=== PATIENT | female | born 1935 | race Caucasian/White ===

== ENCOUNTER 2018-07-20 18:24 | Observation (INO) | payer MEDICARE, OTHER ==
[~2018-07-20] VITALS: Ht 162.6 cm; Wt 70.0 kg
[~2018-07-20 18:24] MED LIST: ACET-141 PO; ADV25050 IH; ALBU18HF INHALATION; AMLO-218 PO; ASPI81TA52 PO; ATAS PO; CLON-379 PO; DICL100G37 TOP; DOCU-159 PO; DULO60CA6 PO; ERGO500014 PO; ESOM20CA PO; FURO20TA3 PO; HYDR-3670 PO; IBAN150T7 PO; IBUP-1542 PO; ISOS30TA67 PO; LEVO500T48 PO; LINA290C PO; LIPA1CAP6 PO; LORA1TAB PO; MECL-77 PO; MEMA28CA PO; MONT10TA21 PO; NAPR-685 PO; NITR0.4T32 SL; OLOP2.5D BOTH EYES; RESTOP4 BOTH EYES; SIMV20TA PO
[2018-07-20] MEDS ORDERED: ONDANSETRON 4 MG INJ IV STA (18:38)
[2018-07-20] MEDS ORDERED: morphine 2 MG INJ IV STA (18:38)
--- NOTE | 2018-07-20 19:34 | ERD ---
ER Documentation Chief Complaint Chief Complaint Intermittent CP at adult daycare, went home, worsened & had headache. VSS HPI 82-year-old female who presents to the emergency room with a granddaughter who is interpreting for the patient describes about 2 days of on and off waxing and waning chest pain that is pressure-like and central and nonradiating. It is present currently but limited by aspirin and nitroglycerin given via EMS. No fevers or chills or cough or congestion. No pleuritic pain. Negative stress test reported approximately 2 years ago. Symptoms are mild currently. ROS All systems reviewed and are negative except as per history of present illness. Medications Home Meds Active Scripts Naproxen* (Naproxen*) 375 Mg Tablet, 375 MG PO BID PRN for PAIN, #20 TAB Prov:HEATHER EMERY DO 07/18/15 Levofloxacin* (Levaquin*) 500 Mg Tablet, 500 MG PO DAILY for 7 Days, TAB Prov:HEATHER EMERY DO 07/18/15 Reported Medications Acetaminophen* (Acetaminophen*) 500 MG Extra Strength Tablet, 1000 MG PO Q6H PRN for PAIN AND OR ELEVATED TEMP, TAB 07/18/15 Diclofenac Sodium* (Voltaren* Gel) 1% -100 Gm Gel, 2 GM TOP TID, #1 TUB 07/18/15 Ergocalciferol* (Drisdol* (Vitamin D2)) 50,000 Unit Capsule, 30105 UNIT PO Q7D, CAP 07/18/15 Olopatadine* (Pataday*) 0.2% - 2.5 Ml Drops, 1 DROP BOTH EYES DAILY, EA 07/18/15 Isosorbide Mononitrate* (Isosorbide Mononitrate*) 30 Mg Tab.er.24h, 30 MG PO DAILY, TAB 07/18/15 Uvvaus-Javofbxt-Fzkcpca* (García INGRAM* 24,000) 24,000 L-76,000-120,000 Unit Capsule.dr, 1 CAP PO WITH MEALS, CAP 07/18/15 Docusate Sodium* (Docusate Sodium*) 100 Mg Capsule, 100 MG PO DAILY, #30 CAP 07/18/15 Clonidine Hcl* (Clonidine Hcl*) 0.1 Mg Tab, 0.1 MG PO Q8 PRN for ELEVATED BLOOD PRESSURE, TAB 07/18/15 Ibandronate Sodium* (Boniva*) 150 Mg Tablet, 150 MG PO Q28D, TAB 07/18/15 Amlodipine Besylate* (Norvasc*) 10 Mg Tablet, 10 MG PO DAILY, TAB 07/18/15 Meclizine Hcl* (Meclizine Hcl*) 25 Mg Tablet, 25 MG PO Q8H PRN for DIZZINESS, TAB 07/18/15 Memantine* (Namenda* XR) 28 Mg Cap.spr.24, 28 MG PO DAILY, #30 TAB 07/18/15 Linaclotide (LINZESS) 290 Mcg Capsule, 290 MCG PO DAILY, #30 CAP 07/18/15 Ibuprofen* (Motrin*) 600 Mg Tab, 600 MG PO BID PRN for PAIN, TAB 07/18/15 Cyclosporine* (Restasis* Oph) 32 Ea Droperette, 1 DROP BOTH EYES Q12, #1 BOX 07/18/15 Aspirin (Low Dose Aspirin) 81 Mg Tablet.dr, 81 MG PO DAILY, #30 TAB 07/18/15 Albuterol Sulfate* (Ventolin HFA*) 18 Gm Hfa.aer.ad, 2 PUFF INHALATION Q6H, #1 INHALER 07/18/15 Esomeprazole Mag Trihydrate (Nexium) 20 Mg Capsule.dr, 20 MG PO DAILY, #30 CAP 07/18/15 Hydralazine Hcl* (Hydralazine Hcl*) 10 Mg Tablet, 10 MG PO Q8, #90 TAB 07/18/15 Hydroxyzine Hcl* (Atarax*) 2 Mg/Ml Syrup, 10 MG PO Q8 PRN for ITCHING, ML 07/18/15 Simvastatin* (Zocor*) 20 Mg Tablet, 20 MG PO QHS, #30 TAB 07/18/15 Duloxetine Hcl* (Cymbalta*) 60 Mg Capsule.dr, 60 MG PO DAILY, CAP 07/18/15 Lorazepam* (Lorazepam*) 1 Mg Tablet, 1 MG PO HS PRN for SLEEP, #30 TAB 07/18/15 Furosemide* (Furosemide*) 20 Mg Tablet, 20 MG PO DAILY, #60 TAB 07/18/15 Salmeterol Xinaf/Fluticasone* (Advair 250/50 Diskus*) 1 Inh Inha, 2 IH 09/29/11 Montelukast Sodium* (Singulair*) 10 Mg Tablet, 10 MG PO DAILY 09/29/11 Nitroglycerin* (Nitroglycerin* SL) 0.4 Mg Tab.subl, 0.4 MG SL 09/29/11 Allergies Allergies: Coded Allergies: No Known Allergy (Verified , 07/11/06) PMhx/Soc History of Surgery: Yes (APPENDECTOMY 20 YEARS AGO) Anesthesia Reaction: No Hx Neurological Disorder: No Hx Respiratory Disorders: Yes (HX CHF) Hx Cardiac Disorders: Yes (HX HTN AND CAD) Hx Psychiatric Problems: Yes (HX DEPRESSION) Hx Miscellaneous Medical Probl: No Hx Alcohol Use: No Hx Substance Use: No Hx Tobacco Use: No Smoking Status: Never smoker FmHx Family History: No diabetes Physical Exam Vitals Vital Signs Date Temp Pulse Resp B/P (MAP) Pulse Ox O2 O2 Flow FiO2 Time Delivery Rate 07/20/18 99.2 80 16 133/74 99 Room Air 18:41 (93) 07/20/18 90 16 133/74 99 18:29 (93) Physical Exam General: Well developed, well nourished, no acute distress Head: Normocephalic, atraumatic. Eyes: Pupils equally reactive, EOM intact ENT: Moist mucous membranes Neck: Supple, no lymphadenopathy Respiratory: Lungs clear bilaterally, no distress Cardiovascular: RRR, no murmurs, rubs, or gallops Abdominal: Soft, non-tender, non-distended, no peritoneal signs : Deferred MSK: No edema, no unilateral swelling, 5/5 strength Neurologic: Alert and oriented, moving all extremities, normal speech, no focal weakness, no cerebellar signs Skin: No rash Psych: Normal mood Result Diagram: 07/20/18 1845 07/20/18 1845 Results 24 hrs Laboratory Tests Test 07/20/18 18:45 White Blood Count 7.3 10^3/ul Red Blood Count 4.05 10^6/ul Hemoglobin 11.6 g/dl Hematocrit 36.0 % Mean Corpuscular Volume 88.9 fl Mean Corpuscular Hemoglobin 28.6 pg Mean Corpuscular Hemoglobin Concent 32.2 g/dl Red Cell Distribution Width 13.3 % Platelet Count 242 10^3/UL Mean Platelet Volume 8.7 fl Immature Granulocytes % 0.100 % Neutrophils % 63.0 % Lymphocytes % 30.8 % Monocytes % 5.7 % Eosinophils % 0.0 % Basophils % 0.4 % Nucleated Red Blood Cells % 0.0 /100WBC Immature Granulocytes # 0.010 10^3/ul Neutrophils # 4.6 10^3/ul Lymphocytes # 2.2 10^3/ul Monocytes # 0.4 10^3/ul Eosinophils # 0.0 10^3/ul Basophils # 0.0 10^3/ul Nucleated Red Blood Cells # 0.0 10^3/ul Sodium Level 133 mmol/L Potassium Level 4.9 mmol/L Chloride Level 102 mmol/L Carbon Dioxide Level 25 mmol/L Anion Gap 6 Blood Urea Nitrogen 17 mg/dl Creatinine 0.93 mg/dl Est Glomerular Filtrat Rate mL/min mL/min Glucose Level 98 mg/dl Calcium Level 8.2 mg/dl Troponin I < 0.012 ng/ml Current Medications Medications Dose Sig/Marlin Start Time Status Last (Trade) Ordered Route PRN Stop Time Admin Dose Reason Admin Morphine 2 mg ONCE STAT 07/20/18 DC Sulfate IV 18:38 (morphine) 07/20/18 18:39 Ondansetron 4 mg ONCE STAT 07/20/18 DC HCl (Zofran IV 18:38 Inj) 07/20/18 18:39 Procedures/MDM EKG, MONITORS, & DIAGNOSTIC IMAGING: EKG: I reviewed and interpreted a 12-lead EKG. Rhythm: Normal sinus rhythm ST Changes: No contiguous ST segment elevations T waves: No contiguous T wave inversions Impression: No evidence of acute cardiac ischemia Repeat EKG: EKG: I reviewed and interpreted a 12-lead EKG. Rhythm: Normal sinus rhythm ST Changes: No contiguous ST segment elevations T waves: No contiguous T wave inversions Impression: No evidence of acute cardiac ischemia Chest x-ray: I reviewed and interpreted a 1 view of the chest Mediastinum: No enlargement Cardiac silhouette: No cardiomegaly Airspace: Clear lung live bilaterally without evidence of pneumothorax Bones: No evidence of fracture PROCEDURES: None LAB INTERPRETATION: * Negative troponin MEDICAL DECISION MAKING: The patient's history, physical exam and clinical presentation is concerning for possible cardiogenic etiology and acute coronary syndrome. Based on the patient's clinical exam and history and risk factors, I have a much lower clinical concern for pulmonary embolism, acute aortic dissection, pneumothorax, pneumonia, cardiac tamponade HEART Score: 4 MACE Rate: 16.6% Shared Decision Making: We had a conversation regarding risk stratification, MACE rate, and the risks, benefits, alternatives of disposition planning options. Disposition planning: Admission for rule out ER COURSE: * Chest pain improving * Aspirin given prior to arrival CONSULTATION: Community Representative Dr. Barrera notified DISPOSITION PLAN: Accepting care team and consultations: I discussed the current laboratory data, diagnostic imaging and emergency care provided. Admitting team: Dr. Arceo Admitting team indication: Insurance directed Departure Diagnosis: Primary Impression: Chest pain Chest pain type: unspecified Qualified Codes: R07.9 - Chest pain, unspecified Condition: Stable IDALIA YARBROUGH MD Jul 20, 2018 19:34
[2018-07-20] MEDS ORDERED: ONDANSETRON 4 MG INJ IV PRN (20:00)
[2018-07-20] MEDS ORDERED: ATORVASTATIN 10 MG TAB PO SCH (21:00)
[2018-07-20] MEDS ORDERED: LORAZEPAM 1 MG TAB PO PRN (21:30)
[2018-07-20] MEDS ORDERED: ZOLPIDEM 5 MG TAB PO PRN (22:00)
--- NOTE | 2018-07-20 22:15 | CONS ---
DATE OF ADMISSION: 07/20/2018 DATE OF CONSULTATION: 07/20/2018 REASON FOR CONSULTATION: Chest pain, assess for acute coronary syndrome. REQUESTING PHYSICIAN: Thai Mcleod MD from the emergency department. HISTORY OF PRESENT ILLNESS: Ms. Garcia is an 82-year-old female with a history of hypertension, d yslipidemia, coronary artery disease, congestive heart failure, depression, appendectomy, who present s from our adult daycare with complaints of substernal chest pain, describes a pressure-like sensatio n associated with headache, left arm numbness. The patient additionally had similar symptoms a few d ays prior and had been evaluated by her PMD. Upon arrival in the emergency department, temperature o f 99.2, blood pressure 133/74, pulse , respiratory rate 16, sat 99%. The patient's labs notable for white blood cell count of 7.3, hemoglobin 11.6, platelet count of 242. Sodium 133, potassium 4. 9, creatinine of 0.9, BUN 17. Troponin negative. Glucose of 98, calcium 8.2. The patient underwent a chest x-ray revealing stable mild cardiomegaly, aortic calcified atherosclerosis, no evidence for acute cardiopulmonary abnormalities. The patient's electrocardiogram revealed a normal sinus rhythm, rate 75 with borderline left axis deviation, anterior T-wave inversion, poor R-wave progression acro ss the anterior precordial leads. The patient thus far has been treated with Zofran, Tylenol, morphi ne and awaits admit to the floor. The patient has had improvement in chest pain status post morphine . PAST MEDICAL HISTORY: As above in HPI. MEDICATIONS PRIOR TO ADMIT: 1. Levofloxacin. 2. Norvasc 10 mg daily. 3. Clonidine p.r.n. 4. Hydralazine 10 mg p.o. q. 8. 5. Imdur 30 mg daily. 6. Simvastatin 20 mg at bedtime. 7. Aspirin 81 mg daily. 8. Cymbalta 60 mg daily. 9. Ibuprofen p.r.n. 10. Namenda 20 mg daily. 11. Naproxen p.r.n. 12. Lasix 20 mg daily. 13. Singulair. 14. Advair. 15. Cyclosporine eyedrops. ALLERGIES: NO DRUG ALLERGIES. SOCIAL HISTORY: No current tobacco, ETOH or illicit drug use. FAMILY HISTORY: No history of sudden cardiac or early CAD. REVIEW OF SYSTEMS: As above in HPI. CONSTITUTIONAL: No fevers, chills. PULMONARY: No current shortness of breath. CARDIOVASCULAR: Intermittent chest pain. GASTROINTESTINAL: No vomiting. GENITOURINARY: No hematuria. MUSCULOSKELETAL: Degenerative joint disease. PSYCHIATRIC: No documented psych history. NEUROLOGIC: History of dementia. PHYSICAL EXAMINATION: VITAL SIGNS: Temperature 99.2, blood pressure 133/74, pulse , respiratory rate 16, sat 99%. GENERAL: The patient is alert, awake, complaining of intermittent chest pain. NECK: JVP approximately 8 to 9 cm of water. CHEST: Fair air movement throughout. HEART: Regular rate and rhythm. Normal S1, S2, I/ systolic murmur, nondisplaced PMI. ABDOMEN: Positive bowel sounds, soft. EXTREMITIES: No significant pitting edema, 1+ pulses bilateral posterior tibial. LABORATORY DATA: As above in HPI. No further labs for my review at this time. IMAGING STUDIES: As above in HPI. No further imaging studies for my review at this time. ECG: As above in HPI. No further electrocardiograms for my review at this time. IMPRESSION: 1. Chest pain, assess for acute coronary syndrome. 2. Abnormal electrocardiogram with anterior T-wave inversions and poor R-wave progression across ant erior precordial leads. Assess for acute coronary syndrome. 3. Hypertension, under reasonable control. 4. Dyslipidemia. 5. History of coronary artery disease. 6. History of congestive heart failure with findings of reasonable volume status at this time. 7. Headache, rule out cerebrovascular accident. 8. Right arm weakness, rule out cerebrovascular accident. 9. Dementia. 10. Anemia, mild. 11. Mild hyponatremia. RECOMMENDATIONS: 1. At this time, we would admit patient to telemetry monitoring to follow rhythm and rate control cl osely. 2. We will complete a rule out for myocardial infarction to ensure the patient's chest pain is not d ue to acute coronary syndrome such as acute myocardial infarction. 3. We would check serial EKGs to assess for significant ongoing changes, an EKG in the morning, EKG for any complaints of chest pain or change in rhythm and to give patient sublingual nitroglycerin for recurrent episodes of chest pain and resume the patient's baseline antihypertensives at this time. 4. Check a 2D echo for this patient's ejection fraction, wall motion and any major valve abnormaliti es. 5. We will consider stress testing this patient to further rule out the possibility of significant o bstructive coronary disease lending to chest pain and subsequent admit to the hospital. 6. Check a fasting lipid panel. Adjust patient's baseline statin therapy as necessary. 7. We will consider carotid ultrasound to assess for carotid stenosis and a possible contribution of symptomatology and consider head CT. Thank you for allowing me to take part in the care of this patient. I will continue to follow very c losely with you. Further recommendations will be made as the patient agrees to inpatient hospital cl inical course. Dictated By: ELISABETH ESCALANTE/TYRA Conf#: [id number] DID#: [id number] CC: THAI MCLEOD MD;*End*
[2018-07-21] MEDS ORDERED: ASPIRIN (EC) 81 MG TAB PO SCH (09:00)
[2018-07-21] MEDS ORDERED: AMLODIPINE 10 MG TAB PO SCH (09:00)
[2018-07-21] MEDS ORDERED: FAMOTIDINE 20 MG INJ IV SCH (09:00)
[2018-07-21] MEDS ORDERED: DULOXETINE 30 MG CAP DR PO SCH (09:00)
[2018-07-21] MEDS ORDERED: PANTOPRAZOLE 40 MG INJ IV SCH (09:00)
[2018-07-21] MEDS ORDERED: CYCLOSPORINE 0.05% OPH DROPERETTE BOTH EYES SCH (09:00)
[2018-07-21] MEDS ORDERED: DOCUSATE SODIUM 100 MG CAP PO SCH (09:00)
[2018-07-21] MEDS ORDERED: ISOSORBIDE MONONITRATE(SR)30 MG TAB PO SCH (09:00)
[2018-07-21] MEDS: ACETAMINOPHEN 325 MG TAB PO PRN ×2 (09:18→15:49)
[2018-07-21] MEDS ORDERED: REGADENOSON 0.4 MG/5 ML SYG ONE (12:18)
--- NOTE | 2018-07-21 12:56 | CONS ---
Assessment/Plan Assessment/Plan Hospital Course (Demo Recall) IMPRESSION: 1. Chest pain, assess for acute coronary syndrome.-neg trop x 3. 2. Abnormal electrocardiogram with anterior T-wave inversions and poor R-wave progression across anterior precordial leads. Assess for acute coronary syndrome. 3. Hypertension, under reasonable control. 4. Dyslipidemia. 5. History of coronary artery disease. 6. History of congestive heart failure with findings of reasonable volume status at this time. 7. Headache, rule out cerebrovascular accident.-carotid GALA with no ischemia 8. Right arm weakness, rule out cerebrovascular accident. 9. Dementia. 10. Anemia, mild. 11. Mild hyponatremia-mild Recc; -Tele -serial ecg's -Continue imdur/norvasc/hydralazine -Continue asa/statin -Lexiscan stress test Consultation Date/Type/Reason Admit Date/Time 07/20/18 Initial Consult Date 07/20/18 Type of Consult Cardiology Reason for Consultation chest pain Requesting Provider: CAROLYNE ZULETA MD Date/Time of Note DATE: 07/21/18 TIME: 12:51 Exam/Review of Systems Vital Signs Vitals Vital Signs Date Temp Pulse Resp B/P (MAP) Pulse Ox O2 O2 Flow FiO2 Time Delivery Rate 07/21/18 97.7 65 18 155/62 98 Room Air 09:26 (93) Exam Exam Review of Systems: CONSTITUTIONAL: No fevers, chills. PULMONARY: No sob CARDIOVASCULAR:intermittent chest pain GASTROINTESTINAL: No nausea/vomiting. GENITOURINARY: No hematuria/dysuria. MUSCULOSKELETAL: No myagias/arthalgias. PSYCHIATRIC: The patient denies depression. NEUROLOGIC: No weakness Psych: no complaints Head: normocephalic ENMT: mucosa pink and moist Neck: supple, jvd Respiratory: diminished breath sounds Cardiovascular: regular rate and rhythm Gastrointestinal: soft, non-tender Musculoskeletal: muscle tone (normal) Extremities: edema (none) Neurological: other (No focal deficits) Labs Result Diagram: 07/21/18 0602 07/21/18 0602 Results 24hrs Laboratory Tests Test 07/20/18 18:45 07/21/18 00:53 07/21/18 06:02 White Blood Count 7.3 # 7.4 Red Blood Count 4.05 L 3.86 L Hemoglobin 11.6 L 11.3 L Hematocrit 36.0 L 34.8 L Mean Corpuscular Volume 88.9 90.2 Mean Corpuscular Hemoglobin 28.6 L 29.3 Mean Corpuscular Hemoglobin Concent 32.2 32.5 Red Cell Distribution Width 13.3 13.4 Platelet Count 242 200 Mean Platelet Volume 8.7 # 8.2 Immature Granulocytes % 0.100 0.300 Neutrophils % 63.0 47.8 Lymphocytes % 30.8 44.4 Monocytes % 5.7 7.1 Eosinophils % 0.0 0.0 Basophils % 0.4 0.4 Nucleated Red Blood Cells % 0.0 0.0 Immature Granulocytes # 0.010 0.020 Neutrophils # 4.6 3.5 Lymphocytes # 2.2 3.3 H Monocytes # 0.4 0.5 Eosinophils # 0.0 0.0 Basophils # 0.0 0.0 Nucleated Red Blood Cells # 0.0 0.0 Sodium Level 133 L 134 L Potassium Level 4.9 4.2 Chloride Level 102 101 Carbon Dioxide Level 25 29 Anion Gap 6 4 L Blood Urea Nitrogen 17 22 H Creatinine 0.93 0.95 Est Glomerular Filtrat Rate mL/min Glucose Level 98 98 Calcium Level 8.2 L 8.2 L Troponin I < 0.012 < 0.012 < 0.012 Creatine Kinase 62 52 Creatine Kinase Index 0.8 0.8 Creatinine Kinase MB (Mass) 0.48 0.42 B-Type Natriuretic Peptide 78 Triglycerides Level 103 Cholesterol Level 195 LDL Cholesterol, Calculated 128 HDL Cholesterol 46 Cholesterol/HDL Ratio 4.2 Medications Medications Current Medications Ondansetron HCl (Zofran Inj) 4 mg ER BRIDGE PRN IV NAUSEA/VOMITING; Start 07/20/18 at 20:00; Stop 07/21/18 at 19:59 Acetaminophen (Tylenol Tab) 650 mg ER BRIDGE PRN PO .MILD PAIN 1-3 OR TEMP Last administered on 07/21/18at 09:18; Admin Dose 650 MG; Start 07/20/18 at 20:00; Stop 07/21/18 at 19:59 Amlodipine Besylate (Norvasc) 10 mg DAILY PO Last administered on 07/21/18at 09:16; Admin Dose 10 MG; Start 07/21/18 at 09:00 Aspirin (Halfprin) 81 mg DAILY PO Last administered on 07/21/18at 09:17; Admin Dose 81 MG; Start 07/21/18 at 09:00 Hydralazine HCl (Apresoline) 10 mg Q8 PO ; Start 07/20/18 at 22:00 Isosorbide Mononitrate (Imdur) 30 mg DAILY PO Last administered on 07/21/18 09:17; Admin Dose 30 MG; Start 07/21/18 at 09:00 Atorvastatin Calcium (Lipitor) 10 mg QHS PO Last administered on 07/20/18 22:00; Admin Dose 10 MG; Start 07/20/18 at 21:00 Cyclosporine (Restasis) 1 drop Q12 BOTH EYES Last administered on 07/21/18 09:19; Admin Dose 1 DROP; Start 07/21/18 at 09:00 Docusate Sodium (Colace) 100 mg DAILY PO Last administered on 07/21/18 09:17; Admin Dose 100 MG; Start 07/21/18 at 09:00 Duloxetine HCl (Cymbalta) 60 mg DAILY PO Last administered on 07/21/18 09:17; Admin Dose 60 MG; Start 07/21/18 at 09:00 Lorazepam (Ativan) 1 mg HS PRN PO SLEEP Last administered on 07/20/18at 23:45; Admin Dose 1 MG; Start 07/20/18 at 21:30 Zolpidem Tartrate (Ambien) 5 mg HS PRN PO INSOMNIA; Start 07/20/18 at 22:00 Famotidine (Pepcid Iv) 20 mg DAILY IV Last administered on 07/21/18 09:19; Admin Dose 20 MG; Start 07/21/18 at 09:00 ELISABETH VALLE Jul 21, 2018 12:56
--- NOTE | 2018-07-21 13:37 | CONS ---
DATE OF ADMISSION: 07/20/2018 DATE OF CONSULTATION: 07/21/2018 TYPE OF PROCEDURE: Lexiscan Cardiolite stress test electrocardiogram portion. REASON FOR STRESS TESTING: Chest pain, assess for ischemia. BASELINE VITAL SIGNS AND ELECTROCARDIOGRAM: Pulse 63, blood pressure 153/69. Baseline electrocardio gram reveals normal sinus rhythm, rate of 63, normal axis, normal intervals with inferior T-wave inve rsion. PROCEDURE IN DETAILS: The patient underwent standard Lexiscan infusion protocol for 10 seconds follo wed by radiolabeled tracer. The patient's test was stopped due to completion of protocol. Maximal a chieved blood pressure during test was 156/65. Maximum heart rate during the test was 97. ELECTROCARDIOGRAM FINDINGS: The patient did not develop any new Lexiscan-induced ST or T-wave change s from baseline abnormalities. No documented PVCs. SYMPTOMS: The patient had a marked complaint of shortness breath during stress test that resolved in recovery. IMPRESSION: 1. No Lexiscan-induced ST or T-wave changes from baseline abnormalities diagnostic of cardiac ischem ia. 2. Complaints of shortness of breath during stress testing. No documented chest pain. 3. No documented premature ventricular contractions during stress testing. 4. Report of nuclear images to follow in separate dictation. Dictated By: ELISABETH ESCALANTE/NTS Conf#: [id number] DID#: [id number] CC: CAROLYNE ZULETA MD; IDALIA YARBROUGH MD;*End*
--- NOTE | 2018-07-21 13:55 | HP ---
DATE OF ADMISSION: 07/20/2018 HISTORY OF PRESENT ILLNESS: An 82-year-old female who came into the emergency room last night with a cute chest pain and discomfort over the chest. The patient has history of coronary artery disease, h ypertension, osteoarthritis, hyperlipidemia and history of asthma. The patient came in as I mentione d with the chest pain. EKG was done in the emergency room which was negative, no acute changes. Ini tial troponin was negative, so the patient will be admitted for observation to rule out ischemia. HOME MEDICATIONS: 1. Naproxen 375 twice a day. 2. Tylenol on p.r.n. basis. 3. Vitamin D once a week. 4. Isosorbide 30 daily. 5. Probiotics. 6. Clonidine 0.1 q.8 p.r.n. SBP over 160. 7. Amlodipine 10 mg p.o. daily. 8. Boniva 150 once a week. 9. Meclizine on p.r.n. basis. 10. Namenda XR 28 once a day. 11. Linzess 290 once a day. 12. Ibuprofen on p.r.n. basis. 13. Breathing treatments on p.r.n. basis. 14. Simvastatin 20 mg once a day. 15. Singulair 10 mg p.o. daily. PAST MEDICAL HISTORY: As I mentioned, hypertension, CAD, history of depression, history of hyperlipi demia, COPD with asthma. PAST SURGICAL HISTORY: Appendectomy over 20 years ago. FAMILY HISTORY: Hypertension. SOCIAL HISTORY: Negative for tobacco abuse, any alcohol abuse or any drug abuse. REVIEW OF SYSTEMS: She complains of discomfort over the chest. She complains of shortness of breath . She looks panicky and anxious. She denies of any abdominal pain, nausea, vomiting. She denies of any hesitancy, urgency or pain during urination. She denies any numbness of one side more than the other. PHYSICAL EXAMINATION: VITAL SIGNS: Blood pressure is 133/74, heart rate 78, respiratory rate 18 and she is afebrile, satur ating 99% on 2 liters of oxygen. GENERAL: Alert and oriented x3, in no distress. HEENT: Head is atraumatic, normocephalic. Pupils are equal and reactive to light. Extraocular musc les are intact. Nares are clear. No obstruction, no deviation of the septum. Oral cavity is normal , oral hygiene. Ear canals are clear. No signs of inflammation or infection. Tympanic membranes ar e intact. NECK: Supple. No JVD, no surgical scars, no lymph nodes palpable over the neck. CHEST: AP contour within normal limits. BREASTS: Nipples are normal. No nipple retraction. HEART: S1, S2. Regular rate and rhythm with mild cardiomegaly. ABDOMEN: Soft. Positive bowel sounds. No hepatosplenomegaly, no masses palpable over the abdomen a nd no rebound tenderness. EXTREMITIES: No edema, clubbing or cyanosis of the extremities. LABORATORY DATA: Today CBC: White blood cells 7.3, hemoglobin is 11.6, hematocrit 36.0, platelet 24 2. Chemistry: Sodium was 133, potassium 4.9, BUN 17, creatinine 0.93 and chloride 98. DIAGNOSTIC DATA: EKG: No acute changes over the EKG. No acute cardiac ischemia. Chest x-ray: No enlargement of the heart, no cardiomegaly, no CHF. The patient will be admitted for chest pain, rule out ischemia. We will have cardiology evaluate her . We will have echo and stress test done and we will follow. OTHER DIAGNOSES: 1. Hypertension. 2. Depression. 3. Anxiety. 4. Gastroesophageal reflux disease. 5. Chronic obstructive pulmonary disease with asthma. 6. Hyperlipidemia. Dictated By: CAROLYNE ZULETA MD SB/TYRA Conf#: [id number] DID#: [id number] CC: ELISABETH VALLE MD; IDALIA YARBROUGH MD;*End*
[2018-07-21 14:14] VITALS: PULSE 93
[2018-07-21 14:20] VITALS: Ht 162.6 cm; Wt 70.0 kg
--- NOTE | 2018-07-21 14:54 | RADRPT ---
Vent Rate: 87 bpm RR Interval: 692 msec IA Interval: 189 msec QRS Duration: 81 msec QT Interval: 379 msec QTC Interval: 456 msec P-R-T [place]: 62 - -10 - 62 degrees Sinus rhythm...normal P axis, V-rate 50- 99 Electronically Signed By: Gigi Mejia
[2018-07-21] MEDS ORDERED: MAGNESIUM HYDROXIDE 30ML CUP PO PRN (15:30)
[2018-07-21 15:43] VITALS: BP 124/60; PULSE 80; RESP 16
[2018-07-21 16:01] VITALS: PULSE 81
[2018-07-21 20:00] VITALS: BP 122/67; PULSE 86; RESP 18
[2018-07-21] MEDS ORDERED: DOCUSATE SODIUM 250 MG CAP PO SCH (21:00)
--- NOTE | 2018-07-21 22:15 | RADRPT ---
Echocardiogram Report Patient Name: SABI LOPEZPatient ID: [id number] : 1935 (82y 7m)Study Date: 07/21/2018 8:09:46 AM Gender: FAccession #: [id number] Tech: Samia Abarca OLIVIER Location: [facility] Ref.Physician: ELISABETH BARRERA Height(Cm): BSA: Weight(Kg): Quality: AdequateOrder Physician: ELISABETH BARRERA Account #: Procedures: Echocardiographic Report: Transthoracic echocardiogram with complete 2D, M-Mode, and doppler examination. Indications: Chest Pain. Measurements: 2D/M Mode Doppler Measurement Value Normal Range Measurement Value Normal Range LVIDd 2D 4.9 [ 3.8 - 5.2 ] cm AV Peak Jl 1.5 [ 100.0 - 170.0 ] cm/sec LVIDs 2D 3.0 [ 2.2 - 3.5 ] cm AV Peak PG 9.0 [ 2.0 - 9.0 ] mmHg LVPWd 2D 1.1 [ 0.6 - 0.9 ] cm LVOT Peak Jl 1.1 [ 70.0 - 110.0 ] cm/sec IVSd 2D 1.0 [ 0.6 - 0.9 ] cm LVOT Peak PG 5.0 [ 2.0 - 6.0 ] mmHg IVS/LVPW 2D 0.9 ratio MV E Peak Jl 0.7 [ 60.0 - 130.0 ] cm/sec AoR Diam 2D 2.6 [ 2.3 - 3.1 ] cm MV A Peak Jl 1.0 [ 100.0 - 120.0 ] cm/sec LA/Ao 2D 1 ratio MV E/A 0.7 [ 0.8 - 1.5 ] ratio LA Dimen 2D 3.4 [ 2.7 - 3.8 ] cm MV Decel Time 299 [ 104 - 258 ] msec Lat E` Jl 0.1 [ 10.0 - 15.0 ] cm/sec MV E/A 0.7 [ 0.8 - 1.5 ] ratio TR Peak Jl 2.5 [ 100.0 - 280.0 ] cm/sec TR Peak PG 24.0 mmHg RVSP 27.0 [ 10.0 - 36.0 ] mmHg RA Pressure 3.0 mmHg Findings: Left Ventricle: Normal left ventricular systolic function. Normal left ventricular cavity size. Mild concentric left ventricular hypertrophy. Ejection fraction is visually estimated at 60 %. Tissue Doppler/Mitral Doppler indices are consistent with impaired relaxation (Stage I diastolic dysfunction). Right Ventricle: Normal right ventricular size. Normal right ventricular systolic function. Left Atrium: The left atrium is normal in size. Right Atrium: The right atrium is normal in size. Mitral Valve: Normal appearance and function of the mitral valve with trace physiologic regurgitation. Aortic Valve: Normal appearance of the aortic valve. No significant aortic stenosis or insufficiency. Tricuspid Valve: Normal appearance of the tricuspid valve. The estimated Peak RVSP is 27 mmHg. There is trace tricuspid regurgitation. Pulmonic Valve: Pulmonic valve not well visualized. Pericardium: Normal pericardium with no significant pericardial effusion. Aorta: Normal aortic root. IVC: Normal size and normal respiratory collapse consistent with normal right atrial pressure. Conclusions: Normal left ventricular systolic function. Normal left ventricular cavity size. Mild concentric left ventricular hypertrophy. Ejection fraction is visually estimated at 60 %. Tissue Doppler/Mitral Doppler indices are consistent with impaired relaxation (Stage I diastolic dysfunction). Normal appearance and function of the mitral valve with trace physiologic regurgitation. Normal appearance of the tricuspid valve. The estimated Peak RVSP is 27 mmHg. There is trace tricuspid regurgitation. Electronically Signed By: Elisabeth Barrera 2018-07-21 22:14:13 PDT
--- NOTE | 2018-07-26 09:39 | GILP ---
DATE OF PROCEDURE: 07/21/2018 HOSPITAL COURSE: The patient was admitted through emergency room for acute chest pain, unstable liborio na to rule out ischemia with shortness of breath. The patient has past medical history of atheroscle rotic vascular disease, obesity, hypertension, degenerative joint disease, dyslipidemia, chronic back pain. The patient was admitted, was taken to the labor relations representative by Dr. Barrera for stress test. The stre ss test revealed a normal ejection fraction, no arterial disease. The patient's cardiac enzymes were negative. 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 Theref ore, patient WAS discharged on 07/21/2018 in stable condition after ruling out for ischemia with diag nosis of hypertension, degenerative joint disease, chronic pain, chronic headache, neuropathy of lowe r extremities and dyslipidemia. Dictated By: CAROLYNE FLORES/TYRA Conf#: [id number] DID#: [id number]
== END 2018-07-21 20:00 | disposition home or self-care (01) ==
LOC: E/R 18:24 → TEL 19:40
PROVIDERS: ADMIT Family Medicine; ATTEND Family Medicine
DX: R07.9 Chest pain, unspecified (principal); I11.0 Hypertensive heart disease with heart failure; I50.9 Heart failure, unspecified; I25.10 Atherosclerotic heart disease of native coronary artery without angina pectoris; E78.5 Hyperlipidemia, unspecified; J44.9 Chronic obstructive pulmonary disease, unspecified; J45.909 Unspecified asthma, uncomplicated; F32.9 Major depressive disorder, single episode, unspecified; F41.9 Anxiety disorder, unspecified; K21.9 Gastro-esophageal reflux disease without esophagitis; R51 Headache; R53.1 Weakness; F03.90 Unspecified dementia, unspecified severity, without behavioral disturbance, psychotic disturbance, mood disturbance, and anxiety; D64.9 Anemia, unspecified; E87.1 Hypo-osmolality and hyponatremia; Z79.82 Long term (current) use of aspirin
CPT/HCPCS: 36415; 71045; 78452; 80048; 80061; 82550; 82553; 83880; 84484; 85025; 93005; 93017; 93306; 93880; 99285; A9500; A9505; G0378; J2270; J2405; J2785